=== PATIENT | female | born 1995 | race Caucasian/White ===

== ENCOUNTER 2016-08-09 21:39 | Emergency (ER) | payer MEDICARE ==
[2016-08-09 23:15] LABS: BASO # 0.1 10_X3_uL (0.0-0.1); EOS # 0.4 10_X3_uL (0.0-0.4); EOS % 4.7 % (0.7-5.8); GRAN # 3.3 10_X3_uL (1.6-6.1); GRAN % 42.8 % (34.0-71.1); HEMATOCRIT 41.4 % (34-45); LYMPH # 3.3 10_X3_uL (1.2-3.7); LYMPH % 43.1 % (19.3-51.7); MEAN CORPUSCULAR HEMOGLOBIN 31.8 pg (27.0-33.0); MEAN CORPUSCULAR HGB CONC 33.8 g/dL (32.0-36.0); MEAN CORPUSCULAR VOLUME 94.1 fL (79-95); MEAN PLATELET VOLUME 11.5 fl (7.5-11.5); MONO # 0.6 10_X3_uL (0.2-0.9); MONO % 8.4 % (4.7-12.5); PLATELET COUNT 214 x10_3/uL (182-369); WHITE BLOOD COUNT 7.6 x10_3/uL (4.0-10.0)
[2016-08-09 23:25] LABS: BLOOD UREA NITROGEN 6 mg/dL (7-18); CALCIUM 9.2 mg/dL (8.7-10.7); CARBON DIOXIDE 25 mmol/L (21-32); CREATININE 0.6 mg/dL (0.6-1.3); GLUCOSE,RANDOM 66 mg/dL (70-99); POTASSIUM 3.3 mmol/L (3.5-5.1); SODIUM 143 mmol/L (136-145)
== END 2016-08-10 11:51 | disposition home or self-care (01) ==
LOC: ER 21:39
PROVIDERS: Internal Medicine
DX: B34.9 Viral infection, unspecified (principal); R11.2 Nausea with vomiting, unspecified; E87.6 Hypokalemia
CPT/HCPCS: 36415; 80048; 85025; 87070; 87400; 87880; 96374; 99070; 99283-25